=== PATIENT | male | born 1935 | race Caucasian/White ===

== ENCOUNTER 2022-12-03 16:37 | Inpatient (IN) | payer OTHER, BC ==
[2022-12-03 17:07] VITALS: BMI 24.3
[2022-12-03 18:08] LABS: BASO % 0.4 % (0-2.0); EOS % 2.1 % (0-4.5); HEMATOCRIT 34.4 % (35.4-49); HEMOGLOBIN 11.9 GM/dL (11.7-16.9); LYMPH % 3.1 % (8-40); MCH 29.4 pg (25.7-33.7); MCHC 34.5 g/dl (32.0-35.9); MEAN CELL VOLUME 85.4 fl (80-96); MEAN PLT VOLUME 6.7 fl (7.5-11.1); MONO % 9.7 % (3.8-10.2); NEUT % 84.7 % (42.8-82.8); PLATELET COUNT 155 10^3/uL (134-434); RBC 4.03 M/mm3 (4.00-5.60); RDW 14.2 % (11.9-15.9); WHITE BLOOD COUNT 8.7 K/mm3 (4.0-10.0)
[2022-12-03 18:42] LABS: EPI CELLS 1 /uL (0-25.1); HYALINE CASTS 0 /uL (0-3.1); PH,URINE 5.5 (5.0-8.0); URINE APPEARANCE CLOUDY; URINE BACTERIA >9,000 /uL (0-1359); URINE BILIRUBIN NEGATIVE (NEGATIVE); URINE COLOR YELLOW; URINE GLUCOSE (UA) NEGATIVE (NEGATIVE); URINE KETONE NEGATIVE (NEGATIVE); URINE LEUK ESTERASE 3+ (NEGATIVE); URINE NITRITE NEGATIVE (NEGATIVE); URINE PROTEIN 1+ (NEGATIVE); URINE RBC 106 /uL (0-23.9); URINE UROBILINOGEN 0.2 mg/dL (0.2-1.0); URINE WBC 4831 /uL (0-25.8)
[2022-12-03 18:46] LABS: POTASSIUM 4.6 mmol/L (3.5-5.1)
[2022-12-03 18:49] LABS: ALBUMIN 3.3 g/dl (3.4-5.0); BLOOD UREA NITROGEN 34.3 mg/dL (7-18)
[2022-12-03 18:52] LABS: CREATININE 1.9 mg/dL (0.55-1.3)
[2022-12-03 18:53] LABS: BILIRUBIN,TOTAL 0.5 mg/dL (0.2-1); TOT PROT 6.9 g/dl (6.4-8.2)
[2022-12-03] MEDS: CEFTRIAXONE 1 GM in DEXTROSE 5%-WATER - 50 ML IVPB SCH (22:10)
[2022-12-03] MEDS ORDERED: CEFTRIAXONE 1 GM/50 ML BAG ONE (22:11)
[2022-12-03] MEDS ORDERED: POLYETHYLENE GLYCOL (HEALTHYLAX) 3350 17 GM PACKET ONE (22:19)
[2022-12-03] MEDS ORDERED: MAGNESIUM CITRATE 300 ML BOTTLE ONE (22:20)
[2022-12-03] MEDS: MINERAL OIL ENEMA 133 ML ENEMA RC ONE ×2 (22:22→22:30)
[2022-12-03] MEDS: MAGNESIUM CITRATE 300 ML BOTTLE PO ONE ×2 (22:22→22:30)
[2022-12-03] MEDS: SODIUM CHLORIDE 1,000 ML IV SCH (22:22)
[2022-12-03] MEDS: POLYETHYLENE GLYCOL (HEALTHYLAX) 3350 17 GM PACKET PO SCH ×2 (22:22→22:30)
[2022-12-04] MEDS: SODIUM CHLORIDE 1,000 ML IV SCH (04:52)
[2022-12-04] MEDS ORDERED: MINERAL OIL ENEMA 133 ML ENEMA RC ONE (05:00)
[2022-12-04] MEDS ORDERED: HEPARIN NA (PORCINE) 5,000 UNITS/ML 1ML VIAL SQ SCH (06:00)
[2022-12-04] MEDS: INSULIN SLIDING SCALE (NOVOLOG) 1 VIAL SQ SCH ×4 (06:09→21:41)
[2022-12-04] MEDS: CEFTRIAXONE 1 GM in DEXTROSE 5%-WATER - 50 ML IVPB SCH (09:35)
[2022-12-04] MEDS: ATENOLOL 25 MG TABLET (FP) PO SCH (09:35)
[2022-12-04] MEDS: FENOFIBRIC ACID 135 MG CAP PO SCH (09:35)
[2022-12-04] MEDS: CHOLECALCIFEROL (VIT D3) 5000 UNITS (125 MCG) CAP PO SCH (09:35)
[2022-12-04] MEDS: FLUCONAZOLE 100 MG TABLET (UD) PO SCH (09:35)
[2022-12-04] MEDS: POLYETHYLENE GLYCOL (HEALTHYLAX) 3350 17 GM PACKET PO SCH ×2 (09:35→21:41)
[2022-12-04] MEDS ORDERED: PATIENT'S OWN MEDICATION (NON-FORMULARY) (Fish Oil/Borage/Flax/Om3,6,9 1 [Omega 3-6-9 1,20 PO SCH (10:00)
[2022-12-04] MEDS ORDERED: LOSARTAN POTASSIUM 50 MG TABLET PO SCH (10:00)
[2022-12-04 10:42] LABS: BASO % 0.4 % (0-2.0); EOS % 4.4 % (0-4.5); HEMATOCRIT 33.1 % (35.4-49); MCH 28.6 pg (25.7-33.7); MCHC 33.3 g/dl (32.0-35.9); MEAN CELL VOLUME 85.9 fl (80-96); MEAN PLT VOLUME 6.8 fl (7.5-11.1); MONO % 10.7 % (3.8-10.2); NEUT % 75.5 % (42.8-82.8); PLATELET COUNT 144 10^3/uL (134-434); RBC 3.85 M/mm3 (4.00-5.60); RDW 13.8 % (11.9-15.9); WHITE BLOOD COUNT 4.7 K/mm3 (4.0-10.0)
[2022-12-04 11:06] LABS: ALBUMIN 2.9 g/dl (3.4-5.0); BLOOD UREA NITROGEN 28.6 mg/dL (7-18); CALCIUM 8.6 mg/dL (8.5-10.1); MAGNESIUM 1.5 mg/dL (1.8-2.4)
[2022-12-04 11:09] LABS: CREATININE 1.4 mg/dL (0.55-1.3); PHOSPHOROUS 2.4 mg/dL (2.5-4.9)
[2022-12-04 11:11] LABS: BILIRUBIN,TOTAL 0.6 mg/dL (0.2-1); TOT PROT 6.4 g/dl (6.4-8.2)
[2022-12-04] MEDS ORDERED: MAG HYDROX/AL HYDROX/SIMETH 30 ML UNIT-DOSE CUP PO PRN (16:13)
[2022-12-04] MEDS ORDERED: ACETAMINOPHEN 325 MG TABLET (FP) PO PRN (16:13)
[2022-12-04] MEDS ORDERED: DOCUSATE SODIUM 100 MG CAPSULE (FP) PO PRN (16:13)
[2022-12-04] MEDS: ATORVASTATIN CA 10 MG TABLET (FP) PO SCH (21:40)
[2022-12-05] MEDS: INSULIN SLIDING SCALE (NOVOLOG) 1 VIAL SQ SCH (06:27)
[2022-12-05] MEDS: SODIUM CHLORIDE 1,000 ML IV SCH (06:27)
[2022-12-05] MEDS: ATENOLOL 25 MG TABLET (FP) PO SCH (09:42)
[2022-12-05] MEDS: POLYETHYLENE GLYCOL (HEALTHYLAX) 3350 17 GM PACKET PO SCH ×2 (09:42→21:55)
[2022-12-05] MEDS: CHOLECALCIFEROL (VIT D3) 5000 UNITS (125 MCG) CAP PO SCH (09:42)
[2022-12-05] MEDS: FENOFIBRIC ACID 135 MG CAP PO SCH (09:42)
[2022-12-05] MEDS: CEFTRIAXONE 1 GM in DEXTROSE 5%-WATER - 50 ML IVPB SCH (09:42)
[2022-12-05] MEDS: FLUCONAZOLE 100 MG TABLET (UD) PO SCH ×2 (09:42→17:58)
[2022-12-05] MEDS ORDERED: MEROPENEM 1 GM in DEXTROSE 5%-WATER 100 ML IVPB SCH ×2 (10:15→10:30)
[2022-12-05 11:27] LABS: HEMATOCRIT 35.4 % (35.4-49); MCH 29.3 pg (25.7-33.7); MCHC 33.9 g/dl (32.0-35.9); MEAN CELL VOLUME 86.4 fl (80-96); MEAN PLT VOLUME 6.4 fl (7.5-11.1); PLATELET COUNT 172 10^3/uL (134-434); RDW 13.8 % (11.9-15.9); WHITE BLOOD COUNT 6.4 K/mm3 (4.0-10.0)
[2022-12-05 11:44] LABS: CALCIUM 9.2 mg/dL (8.5-10.1)
[2022-12-05 11:46] LABS: BLOOD UREA NITROGEN 26.7 mg/dL (7-18)
[2022-12-05 11:49] LABS: CREATININE 1.4 mg/dL (0.55-1.3)
[2022-12-05 12:14] LABS: MAGNESIUM 1.7 mg/dL (1.8-2.4)
[2022-12-05] MEDS ORDERED: NAPH,MB-DB/K PH,MBDB POWDER PACKET PO ONE (13:00)
[2022-12-05] MEDS ORDERED: MAGNESIUM OXIDE 400 MG TABLET (FP) PO ONE (13:00)
[2022-12-05] MEDS: ATORVASTATIN CA 10 MG TABLET (FP) PO SCH (21:55)
[2022-12-05] MEDS: MEROPENEM 1 GM in DEXTROSE 5%-WATER 100 ML IVPB SCH (21:56)
[2022-12-06] MEDS: MEROPENEM 1 GM in DEXTROSE 5%-WATER 100 ML IVPB SCH ×2 (10:12→21:23)
[2022-12-06] MEDS: POLYETHYLENE GLYCOL (HEALTHYLAX) 3350 17 GM PACKET PO SCH ×2 (10:12→21:22)
[2022-12-06] MEDS: FLUCONAZOLE 100 MG TABLET (UD) PO SCH (10:12)
[2022-12-06] MEDS: FENOFIBRIC ACID 135 MG CAP PO SCH (10:12)
[2022-12-06] MEDS: ATENOLOL 25 MG TABLET (FP) PO SCH (10:13)
[2022-12-06] MEDS: CHOLECALCIFEROL (VIT D3) 5000 UNITS (125 MCG) CAP PO SCH (10:13)
[2022-12-06 11:51] LABS: HEMATOCRIT 36.7 % (35.4-49); HEMOGLOBIN 12.2 GM/dL (11.7-16.9); MCH 29.1 pg (25.7-33.7); MCHC 33.3 g/dl (32.0-35.9); MEAN CELL VOLUME 87.6 fl (80-96); MEAN PLT VOLUME 6.7 fl (7.5-11.1); PLATELET COUNT 197 10^3/uL (134-434); RDW 13.6 % (11.9-15.9); WHITE BLOOD COUNT 5.4 K/mm3 (4.0-10.0)
[2022-12-06 12:03] LABS: POTASSIUM 4.5 mmol/L (3.5-5.1)
[2022-12-06 12:05] LABS: ALBUMIN 3.1 g/dl (3.4-5.0); BLOOD UREA NITROGEN 23.6 mg/dL (7-18); MAGNESIUM 1.7 mg/dL (1.8-2.4)
[2022-12-06 12:08] LABS: CREATININE 1.4 mg/dL (0.55-1.3); PHOSPHOROUS 2.6 mg/dL (2.5-4.9)
[2022-12-06 12:10] LABS: BILIRUBIN,TOTAL 0.6 mg/dL (0.2-1)
[2022-12-06] MEDS ORDERED: MAGNESIUM 1GM/D5W 100ML - 100 ML IVPB IVPB ONE (13:00)
[2022-12-06] MEDS: ATORVASTATIN CA 10 MG TABLET (FP) PO SCH (21:23)
[2022-12-06 23:46] VITALS: RESP 18
[2022-12-07 10:09] LABS: HEMATOCRIT 35.7 % (35.4-49); HEMOGLOBIN 11.9 GM/dL (11.7-16.9); MCH 28.5 pg (25.7-33.7); MCHC 33.3 g/dl (32.0-35.9); MEAN CELL VOLUME 85.5 fl (80-96); MEAN PLT VOLUME 6.5 fl (7.5-11.1); PLATELET COUNT 225 10^3/uL (134-434); RBC 4.17 M/mm3 (4.00-5.60); RDW 13.6 % (11.9-15.9); WHITE BLOOD COUNT 6.7 K/mm3 (4.0-10.0)
[2022-12-07 10:26] LABS: POTASSIUM 4.5 mmol/L (3.5-5.1)
[2022-12-07 10:30] LABS: BLOOD UREA NITROGEN 27.6 mg/dL (7-18); CALCIUM 9.1 mg/dL (8.5-10.1); MAGNESIUM 1.9 mg/dL (1.8-2.4)
[2022-12-07 10:33] LABS: CREATININE 1.4 mg/dL (0.55-1.3)
[2022-12-07] MEDS: CHOLECALCIFEROL (VIT D3) 5000 UNITS (125 MCG) CAP PO SCH (13:12)
[2022-12-07] MEDS: ERTAPENEM SODIUM 1 GM in SODIUM CHLORIDE 50 ML IVPB SCH ×2 (13:12→14:42)
[2022-12-07] MEDS: POLYETHYLENE GLYCOL (HEALTHYLAX) 3350 17 GM PACKET PO SCH ×2 (13:12→21:14)
[2022-12-07] MEDS: FENOFIBRIC ACID 135 MG CAP PO SCH (13:12)
[2022-12-07] MEDS: ATENOLOL 25 MG TABLET (FP) PO SCH (13:13)
[2022-12-07] MEDS: FLUCONAZOLE 100 MG TABLET (UD) PO SCH (13:13)
[2022-12-07] MEDS: ATORVASTATIN CA 10 MG TABLET (FP) PO SCH (21:14)
[2022-12-08] MEDS: POLYETHYLENE GLYCOL (HEALTHYLAX) 3350 17 GM PACKET PO SCH (00:14)
[2022-12-08 07:33] VITALS: BP 107/77; PULSE 70; TEMP 98.1
== END 2022-12-08 07:10 | disposition home or self-care (01) | DRG 690 ==
LOC: JER 16:37 → JERBED 19:56 → J5S 12-04 00:29 → OBSVTOIN 12-04 09:58 → J5S 12-05 17:39
PROVIDERS: ADMIT Internal Medicine
PROC: 05HY33Z Insertion of Infusion Device into Upper Vein, Percutaneous Approach (ICD-10-PCS; principal; 2022-12-07)
DX: N39.0 Urinary tract infection, site not specified (principal); N17.9 Acute kidney failure, unspecified; E11.9 Type 2 diabetes mellitus without complications; K59.00 Constipation, unspecified; I10 Essential (primary) hypertension; G25.2 Other specified forms of tremor; E78.5 Hyperlipidemia, unspecified; R31.9 Hematuria, unspecified; N40.0 Benign prostatic hyperplasia without lower urinary tract symptoms; R33.9 Retention of urine, unspecified
CPT/HCPCS: 0241U-QW; 36415; 36569; 71045-TC-FY; 76775-TC; 76856-TC; 80048; 80053; 81003; 82962; 83605; 83735; 84100; 84484; 85025; 85027; 87040; 87086; 87186; 93005; 93010; 97116-GP; 97161-GP; 99285-25; G0378; J1644

== ENCOUNTER 2022-12-08 14:02 | Day surgery (SDC) | payer OTHER, BC ==
[~2022-12-08 14:02] MED LIST: ERTAPENEM SODIUM 1 GM in SODIUM CHLORIDE 50 ML IVPB SCH
[2022-12-08] MEDS ORDERED: ERTAPENEM SODIUM 1 GM in SODIUM CHLORIDE 50 ML IVPB SCH (14:30)
[2022-12-08 16:12] VITALS: BP 134/86; PULSE 77; RESP 18; TEMP 97.9
== END 2022-12-08 15:45 | disposition home or self-care (01) ==
LOC: FINFUSION 14:02 → FM/S 14:04 → FINFUSION 15:45
PROVIDERS: ATTEND Internal Medicine Infectious Disease
DX: N39.0 Urinary tract infection, site not specified (principal)
CPT/HCPCS: 96365

== ENCOUNTER 2022-12-09 13:23 | Day surgery (SDC) | payer OTHER, BC ==
[2022-12-09] MEDS ORDERED: ERTAPENEM SODIUM 1 GM in SODIUM CHLORIDE 50 ML IVPB ONE (14:00)
[2022-12-09 14:22] VITALS: RESP 18; TEMP 97
[2022-12-09 14:47] VITALS: BP 106/74; PULSE 92
== END 2022-12-09 14:47 | disposition home or self-care (01) ==
LOC: FINFUSION 13:23 → FM/S 13:23 → FINFUSION 14:47
PROVIDERS: ATTEND Internal Medicine Infectious Disease
DX: N39.0 Urinary tract infection, site not specified (principal)
CPT/HCPCS: 96365

== ENCOUNTER 2022-12-10 12:05 | Day surgery (SDC) | payer OTHER, BC ==
[2022-12-10] MEDS ORDERED: ERTAPENEM SODIUM 1 GM in SODIUM CHLORIDE 50 ML IVPB ONE (12:30)
[2022-12-10 12:51] VITALS: BP 114/68; PULSE 80; RESP 18; TEMP 98.1
== END 2022-12-10 13:00 | disposition home or self-care (01) ==
LOC: FM/S 12:05 → FINFUSION 12:05
PROVIDERS: ATTEND Internal Medicine Infectious Disease
DX: N39.0 Urinary tract infection, site not specified (principal)
CPT/HCPCS: 96365

== ENCOUNTER 2022-12-11 10:33 | Day surgery (SDC) | payer OTHER, BC ==
[2022-12-11] MEDS ORDERED: ERTAPENEM SODIUM 1 GM in SODIUM CHLORIDE 50 ML IVPB ONE (11:00)
[2022-12-11 11:06] VITALS: BP 93/57; PULSE 78; RESP 18; TEMP 98.2
== END 2022-12-11 11:45 | disposition home or self-care (01) ==
LOC: FINFUSION 10:33 → FM/S 10:35 → FINFUSION 11:45
PROVIDERS: ATTEND Internal Medicine Infectious Disease
DX: N39.0 Urinary tract infection, site not specified (principal)
CPT/HCPCS: 96365

== ENCOUNTER 2022-12-12 10:55 | Day surgery (SDC) | payer OTHER, BC ==
[2022-12-12] MEDS ORDERED: ERTAPENEM SODIUM 1 GM in SODIUM CHLORIDE 50 ML IVPB ONE (11:30)
[2022-12-12 12:25] VITALS: BP 128/73; PULSE 84; RESP 18; TEMP 98.4
== END 2022-12-12 12:10 | disposition home or self-care (01) ==
LOC: FINFUSION 10:55 → FM/S 10:56 → FINFUSION 12:10
PROVIDERS: ATTEND Internal Medicine Infectious Disease
DX: N39.0 Urinary tract infection, site not specified (principal)
CPT/HCPCS: 96365

== ENCOUNTER 2023-01-12 18:48 | Emergency (ER) | payer OTHER, BC ==
[2023-01-12 19:08] VITALS: BP 141/78; PULSE 90; RESP 16; TEMP 98.3; BMI 25.1
== END 2023-01-12 20:23 | disposition home or self-care (01) ==
LOC: JERFT 18:48 → JER 18:48 → JERFT 20:23
DX: T83.098A Other mechanical complication of other urinary catheter, initial encounter (principal)
CPT/HCPCS: 99282-25

== ENCOUNTER 2023-06-11 04:59 | Day surgery (SDC) | payer OTHER, BC ==
[2023-05-31 10:24] VITALS: BMI 25.9
[2023-06-11] MEDS ORDERED: LIDOCAINE HCL/PF 2% SDV 5ML VIAL ONE (07:34)
[2023-06-11] MEDS ORDERED: FENTANYL CITRATE/PF 50 MCG/ML VIAL ONE ×3 (07:35→08:56)
[2023-06-11] MEDS ORDERED: ePHEDrine SULFATE 50 MG/1 ML AMPULE ONE (08:01)
[2023-06-11] MEDS ORDERED: DEXTROSE 5%-0.45% SALINE 1,000 ML IV SCH (08:30)
[2023-06-11] MEDS ORDERED: ONDANSETRON 4 MG/2 ML VIAL IVPUSH PRN (08:35)
[2023-06-11] MEDS ORDERED: ACETAMINOPHEN INJECTION 100 ML IVPB ONE (08:39)
[2023-06-11] MEDS: ACETAMINOPHEN 1000 MG/100 ML BAG IVPB ONE ×2 (08:44→09:40)
[2023-06-11] MEDS ORDERED: LACTATED RINGERS SOLUTION 1,000 ML IV SCH (08:45)
[2023-06-11 09:42] VITALS: BP 133/83; PULSE 71; RESP 20; TEMP 97.9
== END 2023-06-11 10:45 | disposition home or self-care (01) ==
LOC: JASU-SURG 04:59
PROVIDERS: ATTEND Urology
PROC: 0VT08ZZ Resection of Prostate, Via Natural or Artificial Opening Endoscopic (ICD-10-PCS; principal; 2023-06-11 07:30)
DX: N40.1 Benign prostatic hyperplasia with lower urinary tract symptoms (principal); R33.8 Other retention of urine
CPT/HCPCS: 82962; 88305-TC; 94760; J0131

== ENCOUNTER 2023-06-11 22:29 | Emergency (ER) | payer OTHER, BC ==
[2023-06-11 22:43] VITALS: BP 131/85; PULSE 89; RESP 18; TEMP 97.5; BMI 25.9
[2023-06-11] MEDS: SODIUM PHOSPHATE/NA BIPHOS 133 ML ENEMA PR ONE (23:45)
== END 2023-06-12 00:43 | disposition home or self-care (01) ==
LOC: JER 22:29
DX: T83.091A Other mechanical complication of indwelling urethral catheter, initial encounter (principal); K59.00 Constipation, unspecified
CPT/HCPCS: 99283-25

== ENCOUNTER 2023-06-29 10:43 | Emergency (ER) | payer OTHER, BC ==
[2023-06-29 12:15] LABS: INR 1.1 (0.83-1.09); PROTHROMBIN TIME (PATIENT) 12.7 SEC (9.7-13.0)
[2023-06-29 12:18] LABS: ACTIVATED PTT 37.1 SECONDS (25.2-36.5)
[2023-06-29 12:24] LABS: HEMATOCRIT 37.5 % (35.4-49); HEMOGLOBIN 12.7 G/dL (11.7-16.9); MCH 29.7 pg (25.7-33.7); MCHC 33.8 g/dl (32.0-35.9); MEAN CELL VOLUME 88.1 fl (80-96); MEAN PLT VOLUME 6.9 fl (7.5-11.1); PLATELET COUNT 173.4 10^3/uL (134-434); RBC 4.26 10^6/uL (4.00-5.60); RDW 14.6 % (11.9-15.9); WHITE BLOOD COUNT 6.1 10^3/uL (4.0-10.8)
[2023-06-29 12:27] VITALS: BP 136/82; PULSE 71; RESP 18; TEMP 97.7; BMI 25.5
[2023-06-29 12:30] LABS: ALBUMIN 4.4 g/dl (3.4-5.0); BILIRUBIN,TOTAL 0.6 mg/dl (0.2-1); CALCIUM 9.6 mg/dl (8.5-10.1); CREATININE 1.3 mg/dl (0.6-1.3); POTASSIUM 4.2 mmol/L (3.5-5.1); TOT PROT 6.9 g/dl (6.4-8.2)
[2023-06-29 12:32] LABS: PLATELET ESTIMATE ADEQUATE
== END 2023-06-29 12:53 | disposition home or self-care (01) ==
LOC: FER 10:43
DX: R31.0 Gross hematuria (principal)
CPT/HCPCS: 36415; 80053; 81003; 81015; 85027; 85610; 85730; 99283-25